=== PATIENT | male | born 1965 | race Caucasian/White ===

== ENCOUNTER 2024-09-08 18:19 | Emergency (ER) | payer BC, SELFPAY ==
[2024-09-08 18:20] VITALS: BP 136/81; PULSE 75; RESP 18; TEMP 36.4; O2SAT 100
--- OUTSIDE RECORDS SUMMARY | 2024-09-08 18:20 | XMS_ITS | Clinical Summary ---
Author Organization [email or web address] Address [address] [place] [address] Care Team Providers Care Clerical Warehouseman Name Role Phone Joe Denton MD Primary Care Provider [phone] Source Comments [email or web address],non-owned Affiliates and Associated Physician Practices is amultiple site organization consisting of ambulatory clinics and hospital sitesin [place], [place], [place] and [place]. This disclosure is being madepursuant to the Care Everywhere program and may not contain all information available regarding this patient. Last updated 17.[facility] Allergies No known active allergies Medications * Be aware that medications may not be up to date on this document. Alwaysverify current medications with the patient. predniSONE (DELTASONE) 20 MG tablet Take 3 tabs PO for 3 days, then 2 tabs PO for 3 days, then 1 tab PO for 3 days. 18 Tab 7 Active Additional Information Patient not taking.Reported on 04/28/2023 polyethylene glycol (Golytely) 236 g solution Drink half of prep solution at 5pm the night before colonoscopy. Finish the prep at 4am the day of test. 4000 mL 4 Active Biktarvy 50-200-25 MG 4 Active chlorthalidone (Hygroton) 25 MG tablet 4 Active Mytesi 125 MG Take 1 tablet by mouth 2 times daily 3 Active losartan (Cozaar) 100 MG tablet Take 1 (one) tablet by mouth once daily 3 Active sildenafil (Viagra) 100 MG tablet TAKE 1 TABLET BY MOUTH ONCE DAILY ONE HOUR BEFORE SEXUAL ACTIVITY NEEDED 3 Active B Complex Vitamins (B-Complex/B-12 ) TABS Take 1 tablet by mouth once daily 4 Active doxycycline hyclate (Vibramycin) 100 MG capsule 4 Active loperamide (Imodium) 2 MG capsule Take 1 (one) capsule by mouth 4 times daily as needed 3 Active Social History Tobacco Use Types Packs/Day Years Used Date Smoking Tobacco: Never Tobacco Cessation:Counseling Given: Not Answered Alcohol Use Standard Drinks/Week Comments No 0 (1 standard drink = 0.6 oz pur e alcohol) Sex and Gender Information Value Date Recorded Sex Assigned at Not on file Legal Sex 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 Gender Identity Not on file Sexual Orientation Not on file Last Filed Vital Signs Vital Sign Reading Time Taken Comments Blood Pressure 126/82 04/28/2023 10:00 AM NETWORK SECURITY ANALYST Pulse 78 04/28/2023 10:00 AM NETWORK SECURITY ANALYST Temperature 36.3 C (97.3 F) 04/28/2023 9:46 AM NETWORK SECURITY ANALYST Respiratory Rate 11 04/28/2023 10:0 0 AM NETWORK SECURITY ANALYST Oxygen Saturation 99% 04/28/2023 10: 00 AM NETWORK SECURITY ANALYST Inhaled Oxygen Concentration - - Weight 84.2 kg (185 lb 11.2 oz) 04/28/2023 8:35 AM NETWORK SECURITY ANALYST Height 188 cm (6' 2) 04/28/2023 8:35 AM NETWORK SECURITY ANALYST Body Mass Index 23.84 04/28/2023 8:35 AM NETWORK SECURITY ANALYST Plan of Treatment Health Maintenance Due Date Last Done Comments COLOGUARD (AGES 45-75) - COLON CA SCREENING 1965 CT COLONOGRAPHY - COLON CA SCREENING 1966 FIT - COLON CA SCREENING 1966 FLEX SIG - COLON CA SCREENING 1966 LIPID TESTING 1966 DTAP/TDAP/TD VACCINES (1 - Tdap) 1985 HEPATITIS B VACCINE (1 of 3 - 19+ 3-dose series) 1985 PNEUMOCOCCAL VACCINE 50+ (1 of 1 - PCV) 01/28/2016 ZOSTER VACCINE (1 of 2) 01/28/2016 COVID-19 VACCINE (1 - season) 2023 DEPRESSION SCREENING 03/07/2024 INFLUENZA VACCINE (Season Ended) 2024 01/03/2023, 03/19/2022, 01/20/2021, Additional history exists COLON MONITORING 04/28/2033 04/28/2023, 04/28/2023 COLONOSCOPY - COLON CA SCREENING 04/28/2033 04/28/2023, 04/28/2023 Colorectal Cancer Screening 04/28/2033 HEPATITIS C SCREENING Completed 01/03/2023 , 01/03/2023, 01/03/2023, Additional history exists HIV SCREENING Completed 01/03/2023 HIB VACCINE Aged Out No longer eligi ble based on patient's age to complete this topic HPV VACCINE Aged Out No longer eligi ble based on patient's age to complete this topic MENINGOCOCCAL (Group B) VACCINE SHARED DECISION-MAKING Aged Out No longer eligible based on patient's age to complete this topic MENINGOCOCCAL GROUPS A/C/Y/W VACCINE Aged Out No longer eligible based on patient's age to complete this topic Procedures Procedure Name Priority Date/Time Associated Diagnosis Comments ENDOSCOPY, COLON, SCREENING Routine 04/28/2023 9:01 AM NETWORK SECURITY ANALYST from Last 3 Months or Most Recently Relevant to Health Maintenance Results * ENDOSCOPY, COLON, SCREENING (04/28/2023 9:01 AM NETWORK SECURITY ANALYST) Report Endoscopy POC Endoscopy Department Report _ Patient Name: Del Myers Procedure Date: 04/28/2023 9:01 AM Date of : 1965 Classification: Outpatient Gender: Male Ethnicity: Not or Race: White _ Providers: Tono Yeung MD Referring MD: Joe Denton (Referring MD) Procedure: Colonoscopy Indications: Screening for colorectal malignant neoplasm, This is the patient's first colonoscopy Medications: Monitored Anesthesia Care Description of Procedure: Pre-Anesthesia Assessment: - Prior to the procedure, a History and Physical was performed, and patient medications and allergies were reviewed. The patient's tolerance of previous anesthesia was also reviewed. The risks and benefits of the procedure and the sedation options and risks were discussed with the patient. All questions were answered, and informed consent was obtained. Prior Anticoagulants: The patient has taken no anticoagulant or antiplatelet agents. ASA Grade Assessment: II - A patient with mild systemic disease. After reviewing the risks and benefits, the patient was deemed in satisfactory condition to undergo the procedure. After I obtained informed consent, the scope was passed under direct vision. Throughout the procedure, the patient's blood pressure, pulse, and oxygen saturations were monitored continuously. The [id number] was introduced through the anus and advanced to the cecum, identified by appendiceal orifice and ileocecal valve. The colonoscopy was performed without difficulty. The patient tolerated the procedure well. The quality of the bowel preparation was excellent. Findings: A 4 mm polyp was found in the ascending colon. The polyp was removed with a cold snare. Resection and retrieval were complete. Two hyperplastic polyps were found in the distal rectum. The polyps were diminutive in size. Polypectomy was not attempted. A few diverticula were found in the sigmoid colon. No other significant abnormalities were identified in a careful examination of the remainder of the colon. No mass or large polyps seen. Internal hemorrhoids were found during retroflexion. The hemorrhoids were small. Estimated Blood Loss: Estimated blood loss was minimal. Complications: No immediate complications. Impression: - One 4 mm polyp in the ascending colon, removed with a cold snare. - Diverticulosis in the sigmoid colon. - Internal hemorrhoids. - Two diminutive hyperplastic polyps in the rectum. Recommendation: - Await pathology results. - Repeat colonoscopy in 7 years for surveillance. - Return to referring physician as previously scheduled. - Resume previous diet. - Continue present medications. Attending Participation: I personally performed the entire procedure. Procedure Code(s): --- Professional --- 87847, Colonoscopy, flexible; with removal of tumor(s), polyp(s), or other lesion(s) by snare technique Diagnosis Code(s): --- Professional --- Z12.11, Encounter for screening for malignant neoplasm of colon D12.2, Benign neoplasm of ascending colon K64.8, Other hemorrhoids D12.8, Benign neoplasm of rectum K57.30, Diverticulosis of large intestine without perforation or abscess without bleeding CPT copyright 2021 [employer]. All rights reserved. The codes documented in this report are preliminary and upon mental retardation aide review may be revised to meet current compliance requirements. _ Tono Yeung MD 04/28/2023 9:53:13 AM Note Initiated On: 04/28/2023 9:01 AM Number of Addenda: [address] [facility] [address] [place] [address] [facility] 04/28/2023 9:01 AM NETWORK SECURITY ANALYST us Tono Yeung MD GI PROCEDURE ORDERABLES Edite d Result - Final [facility] from Last 3 Months or Most Recently Relevant to Health Maintenance Insurance [facility] MEDICAID Care Teams Clerical Warehouseman Relationship Specialty Start Date End Date Joe Denton MD [address] [facility] [address] [place] [id number] PCP - General Infectious Disease 12/22/23
--- OUTSIDE RECORDS SUMMARY | 2024-09-08 18:21 | XMS_ITS | Clinical Summary ---
Author Organization [facility] Address [address] [place] [address] Care Team Providers Care Trekking Guide Name Role Phone Gianluca Aparicio MD Primary Care Provider [phone] Allergies Active Allergy Reactions Criticality Noted Date Comments Nevirapine Unknown 09/12/2015 Medications losartan (COZAAR) 100 mg tabletIndication s:Hypertension, essential Take 1 tablet (100 mg total) by mouth daily 90 tablet 3 09/21/2022 Active loperamide (IMODIUM) 2 mg capsule TAKE 1 TABLET BY MOUTH 4 TIMES A DAY NEEDED FOR DIARRHEA. 120 capsule 1 12/27/2022 Active bictegravir-emtr icitabine-tenofo vir (BIKTARVY) 50-200-25 mg tabletIndication s:HIV infection Take 1 tablet by mouth daily 100 tablet 12/30/2022 Active Active Problems Problem Noted Date Diagnosed Date Encounter for medical examination to establish c are 09/21/2022 Assessment & Plan (09/22/2022 12:40 PM CDT): A(n) initial well visit to establish care has been performed today. Del Myers is not up to date on screening tests. He is in need of DEXA, Prostate screening, screening a1c, HIV screening, hepatitis screening, Colon cancer screening, Diabetic kidney disease screening, Cholesterol screening, and Cervical cancer screening. He is not up to date on needed preventative vaccinations; He is in need of Zoster, Hepatitis B, and Hepatitis A. We discussed healthy lifestyle habits, educational material has been given. Medications reviewed, changes documented as per the medical record and discussed with patient along with risks vs benefits. Refilling losartan, Biktarvy, Imodium Labs as ordered; will review records to determine which screening tests are needed Monitor BP at home, 1ce daily at least Return in 1 month Other male erectile dysfunction 10/13/2017 Preventative health care 10/13/2017 Contact dermatitis due to poison nini 05/28/2016 High risk medication use 08/25/2012 Abnormal Pap smear of anus 05/12/2012 Anaclitic depression 05/12/2012 Syphilis 07/22/2011 Human immunodeficiency virus (HIV) infection Immunizations Immunization Administration Dates Next Due Influenza, Quadrivalent, Spl it, Intramuscular 02/27/2015 Influenza, Trivalent, IM (MDV) 05/12/2012 Influenza, Trivalent, Preser vative Free, Intramuscular 01/21/2017 Influenza, Unspecified 03/07/2022(Deferr ed: Patient Refused),03/07/2021(Deferred: Patient Refused) PPD TEST 05/12/2012,07/16/2011 Pneumococcal Conjugate PCV 13 05/28/2016 Pneumococcal Polysaccharide PPV23 05/12/2012 Tdap 10/13/2017 Medical History Medical History Date Comments Hypertension HIV (human immunodeficiency virus infection) (HC C) 1999 Family History Medical History Relation Name Comments Obesity Brother 1 Peripheral vascular disease Brother 1 No Known Problems Father Heart disease Maternal Grandfather No Known Problems Maternal Grandmother No Known Problems Mother No Known Problems Paternal Grandfather No Known Problems Paternal Grandmother Relation Name Status Comments Brother 1 Alive Brother 2 Alive Father Alive Maternal Grandfather Maternal Grandmother Mother Alive Paternal Grandfather Paternal Grandmother Social History Tobacco Use Types Packs/Day Years Used Date Smoking Tobacco: Never Smokeless Tobacco: Never Tobacco Cessation:Counseling Given: Not Answered AUDIT-C Answer Date Recorded Q1: How often do you have a drink containing alc ohol? Monthly or less 09/21/2022 Q2: How many drinks containi ng alcohol do you have on a typical day when you are drinking? 1 or 2 09/21/2022 Q3: How often do you have si x or more drinks on one occasion? 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 Not on file Not on file Not on file Obstetrics History Last Filed Vital Signs Vital Sign Reading Time Taken Comments Blood Pressure 146/92 09/21/2022 9:10 AM CDT Pulse 80 09/21/2022 9:10 AM CDT Temperature 36.8 C (98.3 F) 10/13/2017 8:06 AM CDT Respiratory Rate 18 09/21/2022 9:10 AM CDT Oxygen Saturation 98% 09/21/2022 9:10 AM CDT Inhaled Oxygen Concentration - - Weight 85.6 kg (188 lb 12.8 oz) 09/21/2022 9:10 AM CDT Height 188 cm (6' 2) 09/21/2022 9:10 AM CDT Body Mass Index 24.24 09/21/2022 9:10 AM CDT Plan of Treatment Health Maintenance Due Date Last Done Comments Colon Cancer Screening-Colonoscopy 1965 HLA B 5701 Typing 1965 G6PD 01/28/1984 Hepatitis A Screening 01/28/1984 Hepatitis B Screening 01/28/1984 Hepatitis A Vaccines (1 of 2 - Risk 2-dose series) 1985 Hepatitis B Vaccines (1 of 3 - 19+ 3-dose series) 1985 Zoster Vaccine (1 of 2) 1985 Osteoporosis Screening-Bone Density Scan 01/28/2016 Pneumococcal vaccine <65 (3 of 3 - PPSV23, PCV20 or PCV21) 05/12/2017 05/28/2016, 05/12/2012 HIV+ Chlamydia and Gonorrhea Screening (Rectal) 10/15/2017 10/15/2016 HIV+ Chlamydia and Gonorrhea Screening (Throat) 10/15/2017 10/15/2016 Hemoglobin A1C 10/13/2018 10/13/2017, 10/15/2016 Hepatitis C Screening 10/13/2018 10/13/2017 , 10/15/2016, 09/12/2015 Lipid Panel 10/13/2018 10/13/2017, 10/15/2016 Proteinuria screening Urinalysis (UA) 10/13/2018 10/13/2017, 08/25/2012, 05/12/2012 RPR Screening 10/13/2018 10/13/2017, 10/15/2016 T Spot (quantiferon gold) 10/13/2018 10/13/2017 HIV + Chlamydia and Gonorrhe a Screening (Urine) 10/14/2018 10/14/2017 Prostate Cancer Screening-PSA 10/14/2019 10/13/2017 Depression Screening 09/22/2023 09/21/2022 Regular Well Visit/Exam 18-64 09/22/2023 09/21/2022 Influenza Vaccine (Season Ended) 2024 01/21/2017, 02/27/2015, 05/12/2012 DTaP/Tdap/Td Vaccine (2 - Td or Tdap) 10/14/202711/2017 Procedures Procedure Name Priority Date/Time Associated Diagnosis Comments HEPATITIS C ANTIBODY Routine 10/13/2017 8:44 AM CDT Human immunodeficiency virus (HIV) infection (HCC) HEMOGLOBIN A1C Routine 10/13/2017 8:44 AM CDT Human immunodeficiency virus (HIV) infection (HCC) LIPID PANEL Routine 10/13/2017 8:44 AM CDT URINALYSIS AND REFLEX TO MICROSCOPIC Routine 10/13/2017 8:44 AM CDT Human immunodeficiency virus (HIV) infection (HCC) T-SPOT.TB Routine 10/13/2017 8:44 AM CDT Human immunodeficiency virus (HIV) infection (HCC) RPR Routine 10/13/2017 8:44 AM CDT Syphilis PSA, TOTAL AND FREE Routine 10/13/2017 8 :44 AM CDT Preventative health care from Last 3 Months or Most Recently Relevant to Health Maintenance Results * TB test, T-SPOT (10/13/2017 8:44 AM CDT) [facility] IFN-Gamma Release Assay TB Negative [facility] Comment: Interpretive Data Testing performed by [employer], [address] [place] [address] Current Interpretive Data was last revised 2013 Blood specimen (specimen) 10/13/2017 8:44 AM CDT 10/13/2017 11:27 AM CDT Narrative [facility] - 10/15/2017 2:18 PM CDT Lor Batista NP LAB MICROBIOLOGY - GEN ERAL ORDERABLES Final Result Performing Organization Address [facility] de Phone Number [facility] [address] [facility] [place] [address] * Urinalysis reflex to microscopic Urine (10/13/2017 8:44 AM CDT) Color, ur Yellow Yellow [facility] Clarity, ur Clear Clear [facility] Specific gravity, ur 1.015 1.010 - 1.025 [facility] pH, urine 5.0 [facility] Protein, ur ql Negative Negative [facility] Glucose, ur ql Negative Negative [facility] Ketones, ur Negative Negative [facility] Bilirubin, ur Negative Negative [facility] Blood, ur Negative Negative [facility] Urobilinogen, ur <2.0 <2.0 mg/dL [facility] Nitrite, ur Negative Negative [facility] Leukocyte esterase, ur Negative Negative [facility] Urine 10/13/2017 8:44 AM CDT 10/13/2017 11:27 AM CDT Narrative [facility] - 10/13/2017 11:39 AM CDT Urine pH is affected by diet, medications, systemic acid-base disturbances, and renal tubular function. pH may affect urinary stone formation. For example, urine pH below 6.0 may help reduce the tendency for calcium phosphate stones and pH greater than 6.0 may reduce the tendency for uric acid stone formation. Source: [employer] Last revised 03-17-2017 Lor Batista NP LAB URINE ORDERABLES F inal Result Performing Organization Address City/[facility]/ZIP Co de Phone Number [facility] [place] [address] * Hepatitis C antibody (10/13/2017 8:44 AM CDT) [facility] Hep C Ab Nonreactive Nonreactive [facility] Comment: Interpretive Data Positive and greyzone results should be confirmed by a molecular method. If positive or greyzone, a second separately collected sample should be submitted for Hepatitis C Virus RNA. Detection and Quantitation by Real-Time Reverse Insurance Follow Up Rep-PCR.Current Interpretive data was last revised on 2016. Blood specimen (specimen) 10/13/2017 8:44 AM CDT 10/13/2017 11:27 AM CDT [facility] - 10/13/2017 2:33 PM CDT Lor Batista NP LAB MICROBIOLOGY - GEN ERAL ORDERABLES Edited Result - Final Performing Organization Address [facility] Co de Phone Number [facility] [place] [address] * (ABNORMAL) RPR, serum (10/13/2017 8:44 AM CDT) [facility] RPR Reactive(A ) Nonreactive [facility] Blood specimen (specimen) 10/13/2017 8:44 AM CDT 10/13/2017 11:27 AM CDT [facility] - 10/13/2017 1:54 PM CDT Lor Batista NP LAB MICROBIOLOGY - GEN ERAL ORDERABLES Final Result Performing Organization Address City/[facility]/[place] [address] * PSA, total and free (10/13/2017 8:44 AM CDT) [facility] PSA-free 0.3 ng/mL [facility] PSA-Total 2.5 <=3.5 ng/mL [facility] PSA-Free/Total Ratio See Footnote [facility] Comment: Ratio not calculated because clinical usefulness is not defined except in range of total PSA 4.0-10.0 ng/mL. ADDITIONAL INFORMATION The testing method is an electrochemiluminescence assay manufactured by [employer] and performed on the Modular or Lamonte system. Values obtained with different assay methods or kits may be different and cannot be used interchangeably. Test results cannot be interpreted as absolute evidence for the presence or absence of malignant disease. Test Performed by: [facility] [address] [id number] Blood specimen (specimen) 10/13/2017 8:44 AM CDT 10/13/2017 11:33 AM CDT Narrative [facility] - 10/14/2017 5:13 PM CDT Lor Batista NP LAB BLOOD ORDERABLES F inal Result [facility] [address] [facility] [place] [address] * Hemoglobin A1c (10/13/2017 8:44 AM CDT) Hgb A1C 5.5 4.0 - 5.6 % [facility] Estimated Average Glucose 111 mg/dL [facility] Comment: The ADA recommends reporting an estimated Average Glucose (eAG) with all Hemoglobin A1c results using the equation derived from a study of 507 normal and diabetic adults. Minority populations were underrepresented and children were not included. (Diabetes Care 31:5442-2318, 2008). The eAG is not equivalent to a fasting glucose. Blood specimen (specimen) 10/13/2017 8:44 AM CDT 10/13/2017 11:27 AM CDT Narrative [facility] - 10/13/2017 11:53 AM CDT us Lor Batista NP LAB BLOOD ORDERABLES F inal Result [facility] [address] [facility] [place] [address] * Lipid panel (10/13/2017 8:44 AM CDT) Cholesterol 145 30 - 200 mg/dL [facility] Comment: Interpretive Data Desirable: <200 mg/dL Borderline high: 200-239 mg/dL High: > or = 240 mg/dL Literature Reference: National Cholesterol Education Program (NCEP) Expert Panel on Detection, Evaluation, and Treatment of High Blood Cholesterol in Adults (Adult Treatment Panel III). Circulation 2004; 110:227. Current interpretive data was last revised on 2015. Triglycerides 132 0 - 150 mg/dL [facility] Comment: Interpretive Data Desirable: < 150 mg/dL Borderline High: 150 - 199 mg/dL High: 200 - 499 mg/dL Very High: > or = 499 mg/dL Literature Reference: See Cholesterol Current interpretive data was last revised on 2015. HDL 41 >=40 mg/dL [facility] Comment: Interpretive Data Less than 40 mg/dL - low; A major risk factor for heart disease. Greater than or equal to 60 mg/dL - High; considered protective of heart disease. Literature Reference: See Cholesterol Current interpretive data was last revised on 2015. LDL, calculated 78 10 - 129 mg/dL [facility] Comment: Interpretive Data Optimal: < 100 mg/dL Near Optimal: 100 - 129 mg/dL Borderline High: 130 - 159 mg/dL High: 160 - 189 mg/dL Very high: > or = 190 mg/dL Literature Reference: See Cholesterol Current interpretive data was last revised on 2015. Non-HDL Cholesterol 104 mg/dL [facility] Comment: Interpretive Data When triglycerides are >200 mg/dL, non-HDL C is a secondary target of therapy, with a goal 30 mg/dL higher than the identified LDL-C goal. Reference: See Cholesterol Reference. Current interpretive data was last revised 2015. Blood specimen (specimen) 10/13/2017 8:44 AM CDT 10/13/2017 11:28 AM CDT Narrative [facility] - 10/13/2017 7:01 PM CDT us Linette León MD PhD LAB BLOOD ORDERABL ES Final Result [facility] [place] [address] from Last 3 Months or Most Recently Relevant to Health Maintenance Insurance [facility] MEDICAID [facility] MEDICAID Care Teams Trekking Guide Relationship Specialty Start Date End Date Gianluca Aparicio MD [address] [facility] [address] [place] [address] PCP - General Family Medicine 09/21/22
--- OUTSIDE RECORDS SUMMARY | 2024-09-08 18:21 | XMS_ITS | Referral Summary ---
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 [place], [place] [address] Current Interpretive Data was last revised 2013 Blood specimen (specimen) 10/13/2017 8:44 AM CDT 10/13/2017 11:27 AM CDT Narrative [facility]A LEGER - 10/15/2017 2:18 PM CDT Lor Batista NP LAB MICROBIOLOGY - GEN ERAL ORDERABLES Final Result Performing Organization Address [facility] de Phone Number [facility] [place] [address] * Urinalysis reflex to microscopic Urine (10/13/2017 8:44 AM CDT) Color, ur Yellow Yellow [facility] Clarity, ur Clear Clear [facility] Specific gravity, ur 1.015 1.010 - 1.025 [facility] pH, urine 5.0 [facility] Protein, ur ql Negative Negative [facility] Glucose, ur ql Negative Negative [facility] Ketones, ur Negative Negative [facility] Bilirubin, ur Negative Negative [facility] Blood, ur Negative Negative [facility] Urobilinogen, ur <2.0 <2.0 mg/dL [facility] Nitrite, ur Negative Negative [facility] Leukocyte esterase, ur Negative Negative [facility] Urine 10/13/2017 8:44 AM CDT 10/13/2017 11:27 AM CDT Narrative [facility]A LEGER - 10/13/2017 11:39 AM CDT Urine pH is affected by diet, medications, systemic acid-base disturbances, and renal tubular function. pH may affect urinary stone formation. For example, urine pH below 6.0 may help reduce the tendency for calcium phosphate stones and pH greater than 6.0 may reduce the tendency for uric acid stone formation. Source: [facility]. Last revised 03-17-2017 Lor Batista NP LAB URINE ORDERABLES F inal Result Performing Organization Address [facility] Co de Phone Number [facility] [place] [address] * Hepatitis C antibody (10/13/2017 8:44 AM CDT) [facility] Hep C Ab Nonreactive Nonreactive [facility] Comment: Interpretive Data Positive and greyzone results should be confirmed by a molecular method. If positive or greyzone, a second separately collected sample should be submitted for Hepatitis C Virus RNA. Detection and Quantitation by Real-Time Reverse Gas Compressor Operator-PCR.Current Interpretive data was last revised on 2016. Blood specimen (specimen) 10/13/2017 8:44 AM CDT 10/13/2017 11:27 AM CDT Narrative [facility] - 10/13/2017 2:33 PM CDT Lor Batista NP LAB MICROBIOLOGY - GEN ERAL ORDERABLES Edited Result - Final Performing Organization Address [facility]/ZIP Co de Phone Number [facility] [place] [address] * (ABNORMAL) RPR, serum (10/13/2017 8:44 AM CDT) [facility] RPR Reactive(A ) Nonreactive [facility] Blood specimen (specimen) 10/13/2017 8:44 AM CDT 10/13/2017 11:27 AM CDT Narrative [facility] - 10/13/2017 1:54 PM CDT Lor Batista NP LAB MICROBIOLOGY - GEN ERAL ORDERABLES Final Result [facility] [place] [address] * PSA, total and free (10/13/2017 8:44 AM CDT) [facility] PSA-free 0.3 ng/mL [facility] PSA-Total 2.5 <=3.5 ng/mL [facility] PSA-Free/Total Ratio See Footnote [facility] Comment: Ratio not calculated because clinical usefulness [...] absence of malignant disease. Test Performed by: [facility] [address] [place] [address] Blood specimen (specimen) 10/13/2017 8:44 AM CDT 10/13/2017 11:33 AM CDT Narrative [facility] - 10/14/2017 5:13 PM CDT Lor Batista NP LAB BLOOD ORDERABLES F inal Result Performing Organization Address [facility] Co de Phone Number [facility] [place] [address] * Hemoglobin A1c (10/13/2017 8:44 AM CDT) Hgb A1C 5.5 4.0 - 5.6 % [facility] Estimated Average Glucose 111 mg/dL [facility] Comment: The ADA recommends reporting an estimated Average Glucose (eAG) with all Hemoglobin A1c results using the equation derived from a study of 507 normal and diabetic adults. Minority populations were underrepresented and children were not included. (Diabetes Care 31:7310-1331, 2008). The eAG is not equivalent to a fasting glucose. Blood specimen (specimen) 10/13/2017 8:44 AM CDT 10/13/2017 11:27 AM CDT Narrative [facility] - 10/13/2017 11:53 AM CDT Lor Batista NP LAB BLOOD ORDERABLES F inal Result Performing Organization Address [facility]/ZIP Co de Phone Number [facility] [place] [address] * Lipid panel (10/13/2017 8:44 AM CDT) Cholesterol 145 30 - 200 mg/dL [facility] Comment: Interpretive Data Desirable: <200 mg/dL Borderline high: 200-239 mg/dL High: > or = 240 mg/dL Literature Reference: National Cholesterol Education Program (NCEP) Expert Panel on Detection, Evaluation, and Treatment of High Blood Cholesterol in Adults (Adult Treatment Panel III). Circulation 2004; 110:227. Current interpretive data was last revised on 2015. Triglycerides 132 0 - 150 mg/dL [facility] Comment: Interpretive Data Desirable: < 150 mg/dL Borderline High: 150 - 199 mg/dL High: 200 - 499 mg/dL Very High: > or = 499 mg/dL Literature Reference: See Cholesterol Current interpretive data was last revised on 2015. HDL 41 >=40 mg/dL [facility] Comment: Interpretive Data Less than 40 mg/dL - low; A major risk factor for heart disease. Greater than or equal to 60 mg/dL - High; considered protective of heart disease. Literature Reference: See Cholesterol Current interpretive data was last revised on 2015. LDL, calculated 78 10 - 129 mg/dL [facility] Comment: Interpretive Data Optimal: < 100 mg/dL Near Optimal: 100 - 129 mg/dL Borderline High: 130 - 159 mg/dL High: 160 - 189 mg/dL Very high: > or = 190 mg/dL Literature Reference: See Cholesterol Current interpretive data was last revised on 2015. Non-HDL Cholesterol 104 mg/dL [facility] Comment: Interpretive Data When triglycerides are >200 mg/dL, non-HDL C is a secondary target of therapy, with a goal 30 mg/dL higher than the identified LDL-C goal. Reference: See Cholesterol Reference. Current interpretive data was last revised 2015. Blood specimen (specimen) 10/13/2017 8:44 AM CDT 10/13/2017 11:28 AM CDT Narrative [facility] - 10/13/2017 7:01 PM CDT Linette León MD PhD LAB BLOOD ORDERABL ES Final Result Performing Organization Address City/State/ZIP Co me Phone Number [facility] [place] [address] from Last 3 Months or Most Recently Relevant to Health Maintenance Insurance [facility] MEDICAID [facility] MEDICAID Care Teams Spray Crew Relationship Specialty Start Date End Date Gianluca Aparicio MD [address] [address] PCP - General Family Medicine 09/21/22
--- OUTSIDE RECORDS SUMMARY | 2024-09-08 22:09 | XMS_ITS | Referral Summary ---
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 Comment: Interpretive Data Testing performed by [employer], [address] [place], [place] [address] Current Interpretive Data was last revised 2013 Blood specimen (specimen) 10/13/2017 8:44 AM CDT 10/13/2017 11:27 AM CDT Narrative [facility] LEGER - 10/15/2017 2:18 PM CDT Lor Batista NP LAB MICROBIOLOGY - GEN ERAL ORDERABLES Final Result Performing Organization Address [facility] de Phone Number [facility] [place] [address] * Urinalysis reflex to microscopic Urine (10/13/2017 8:44 AM CDT) Color, ur Yellow Yellow [facility] Clarity, ur Clear Clear [facility] Specific gravity, ur 1.015 1.010 - 1.[address] [facility] pH, urine 5.0 [facility] Protein, ur ql Negative Negative [facility] Glucose, ur ql Negative Negative [facility] Ketones, ur Negative Negative [facility] Bilirubin, ur Negative Negative [facility] Blood, ur Negative Negative [facility] Urobilinogen, ur <2.0 <2.0 mg/dL [facility] Nitrite, ur Negative Negative [facility] Leukocyte esterase, ur Negative Negative [facility] Urine 10/13/2017 8:44 AM CDT [...] tendency for uric acid stone formation. Source: [facility] [employer]. Last revised 03-17-2017 Lor Batista NP LAB URINE ORDERABLES F inal Result Performing Organization Address [facility] Co de Phone Number [facility] [place] [address] * Hepatitis C antibody (10/13/2017 8:44 AM CDT) [facility] Hep C Ab Nonreactive Nonreactive [facility] Comment: Interpretive Data Positive and greyzone results should be confirmed by a molecular method. If positive or greyzone, a second separately collected sample should be submitted for Hepatitis C Virus RNA. Detection and Quantitation by Real-Time Reverse Bulldozer Operator-PCR.Current Interpretive data was last revised on 2016. Blood specimen (specimen) 10/13/2017 8:44 AM CDT 10/13/2017 11:27 AM CDT Narrative [facility] - 10/13/2017 2:33 PM CDT Lor Batista NP LAB MICROBIOLOGY - GEN ERAL ORDERABLES Edited Result - Final Performing Organization Address [facility]/ZIP Co de Phone Number [facility] Department [place] [address] * (ABNORMAL) RPR, serum (10/13/2017 8:44 AM CDT) [facility] RPR Reactive(A ) Nonreactive [facility] Blood specimen (specimen) 10/13/2017 8:44 AM CDT 10/13/2017 11:27 AM CDT Narrative [facility] - 10/13/2017 1:54 PM CDT Lor Batista NP LAB MICROBIOLOGY - GEN ERAL ORDERABLES Final Result [facility] Department [place] [address] * PSA, total and free (10/13/2017 8:44 AM CDT) [facility] PSA-free 0.3 ng/mL [facility] PSA-Total 2.5 <=3.5 ng/mL [facility] PSA-Free/Total Ratio See Footnote [facility] Comment: Ratio not calculated because [...] absence of malignant disease. Test Performed by: [facility] [address] [place] [address] Blood specimen (specimen) 10/13/2017 8:44 AM CDT 10/13/2017 11:33 AM CDT Narrative [facility] - 10/14/2017 5:13 PM CDT Lor Batista NP LAB BLOOD ORDERABLES F inal Result Performing Organization Address [facility] Co de Phone Number [facility] Department [place] [address] * Hemoglobin A1c (10/13/2017 8:44 AM CDT) Hgb A1C 5.5 4.0 - 5.6 % [facility] Estimated Average Glucose 111 mg/dL [facility] Comment: The ADA recommends reporting an estimated Average Glucose (eAG) with all Hemoglobin A1c results using the equation derived from a study of 507 normal and diabetic adults. Minority populations were underrepresented and children were not included. (Diabetes Care 31:0186-7816, 2008). The eAG is not equivalent to a fasting glucose. Blood specimen (specimen) 10/13/2017 8:44 AM CDT 10/13/2017 11:27 AM CDT Narrative [facility] - 10/13/2017 11:53 AM CDT Lor Batista NP LAB BLOOD ORDERABLES F inal Result Performing Organization Address [facility]/ZIP Co de Phone Number [facility] Department [place] [address] * Lipid panel (10/13/2017 8:44 AM CDT) Cholesterol 145 30 - 200 mg/dL [facility] Comment: Interpretive Data Desirable: <200 mg/dL Borderline high: 200-239 mg/dL High: > or = 240 mg/dL Literature Reference: National Cholesterol Education Program (NCEP) Expert Panel on Detection, Evaluation, and Treatment of High Blood Cholesterol in Adults (Adult Treatment Panel III). Circulation 2004; 110:227. Current interpretive data was last revised on 2015. Triglycerides 132 0 - 150 mg/dL [facility] Comment: Interpretive Data Desirable: < 150 mg/dL Borderline High: 150 - 199 mg/dL High: 200 - 499 mg/dL Very High: > or = 499 mg/dL Literature Reference: See Cholesterol Current interpretive data was last revised on 2015. HDL 41 >=40 mg/dL [facility] Comment: Interpretive Data Less than 40 mg/dL - low; A major risk factor for heart disease. Greater than or equal to 60 mg/dL - High; considered protective of heart disease. Literature Reference: See Cholesterol Current interpretive data was last revised on 2015. LDL, calculated 78 10 - 129 mg/dL [facility] Comment: Interpretive Data Optimal: < 100 mg/dL Near Optimal: 100 - 129 mg/dL Borderline High: 130 - 159 mg/dL High: 160 - 189 mg/dL Very high: > or = 190 mg/dL Literature Reference: See Cholesterol Current interpretive data was last revised on 2015. Non-HDL Cholesterol 104 mg/dL [facility] Comment: Interpretive Data When triglycerides [...] Final Result Performing Organization Address City/State/ZIP Co sc Phone Number [facility] [place] [address] from Last 3 Months or Most Recently Relevant to Health Maintenance Insurance [facility] MEDICAID [facility] MEDICAID Care Teams Butcher Supervisor Relationship Specialty Start Date End Date Gianluca Aparicio MD [address] [address] PCP - General Family Medicine 09/21/22
--- OUTSIDE RECORDS SUMMARY | 2024-09-08 22:09 | XMS_ITS | Clinical Summary ---
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 Comment: Interpretive Data Testing performed by [employer], [address] [place] [address] Current Interpretive Data was last revised 2013 Blood specimen (specimen) 10/13/2017 8:44 AM CDT 10/13/2017 11:27 AM CDT Narrative [facility] LEGER - 10/15/2017 2:18 PM CDT Lor Batista NP LAB MICROBIOLOGY - GEN ERAL ORDERABLES Final Result Performing Organization Address [facility] de Phone Number [facility] Department [place] [address] * Urinalysis reflex to microscopic Urine (10/13/2017 8:44 AM CDT) Color, ur Yellow Yellow [facility] Clarity, ur Clear Clear [facility] Specific gravity, ur 1.015 1.010 - 1.[address] [facility] pH, urine 5.0 [facility] Protein, ur ql Negative Negative [facility] Glucose, ur ql Negative Negative [facility] Ketones, ur Negative Negative [facility] Bilirubin, ur Negative Negative [facility] Blood, ur Negative Negative [facility] Urobilinogen, ur <2.0 <2.0 mg/dL [facility] Nitrite, ur Negative Negative [facility] Leukocyte esterase, ur Negative Negative [...] for uric acid stone formation. Source: [employer]. Last revised 03-17-2017 Lor Batista NP LAB URINE ORDERABLES F inal Result Performing Organization Address City/[facility]/ZIP Co de Phone Number [facility] Department [place] [address] * Hepatitis C antibody (10/13/2017 8:44 AM CDT) [facility] Hep C Ab Nonreactive Nonreactive [facility] Comment: Interpretive Data Positive and greyzone results should be confirmed by a molecular method. If positive or greyzone, a second separately collected sample should be submitted for Hepatitis C Virus RNA. Detection and Quantitation by Real-Time Reverse Malted Milk Masher-PCR.Current Interpretive data was last revised on 2016. Blood specimen (specimen) 10/13/2017 8:44 AM CDT 10/13/2017 11:[address] [facility] - 10/13/2017 2:33 PM CDT Lor Batista NP LAB MICROBIOLOGY - GEN ERAL ORDERABLES Edited Result - Final Performing Organization Address [facility] Co de Phone Number [facility] Department [place] [address] * (ABNORMAL) RPR, serum (10/13/2017 8:44 AM CDT) [facility] RPR Reactive(A ) Nonreactive [facility] Blood specimen (specimen) 10/13/2017 8:44 AM CDT 10/13/2017 11:[address] [facility] - 10/13/2017 1:54 PM CDT Lor Batista NP LAB MICROBIOLOGY - GEN ERAL ORDERABLES Final Result Performing Organization Address City/[facility]/[place] [address] * PSA, total and free (10/13/2017 8:44 AM CDT) [facility] PSA-free 0.3 ng/mL [facility] PSA-Total 2.5 <=3.5 ng/mL [facility] PSA-Free/Total Ratio See Footnote [facility] [...] absence of malignant disease. Test Performed by: [facility] [address] [id number] Blood specimen (specimen) 10/13/2017 8:44 AM CDT 10/13/2017 11:33 AM CDT Narrative [facility] - 10/14/2017 5:13 PM CDT Lor Batista NP LAB BLOOD ORDERABLES F inal Result [facility] Department [place] [address] * Hemoglobin A1c (10/13/2017 8:44 AM CDT) Hgb A1C 5.5 4.0 - 5.6 % [facility] Estimated Average Glucose 111 mg/dL [facility] Comment: The ADA recommends reporting an estimated Average Glucose (eAG) with all Hemoglobin A1c results using the equation derived from a study of 507 normal and diabetic adults. Minority populations were underrepresented and children were not included. (Diabetes Care 31:8852-3285, 2008). The eAG is not equivalent to a fasting glucose. Blood specimen (specimen) 10/13/2017 8:44 AM CDT 10/13/2017 11:27 AM CDT Narrative [facility] - 10/13/2017 11:53 AM CDT us Lor Batista NP LAB BLOOD ORDERABLES F inal Result [facility] Department [place] [address] * Lipid panel (10/13/2017 8:44 AM CDT) [...] LAB BLOOD ORDERABL ES Final Result [facility] [place] [address] from Last 3 Months or Most Recently Relevant to Health Maintenance Insurance COUNTS INCLUDE 234 BEDS AT THE [facility] MEDICAID COUNTS INCLUDE 234 BEDS AT THE [facility] MEDICAID Care Teams Hand Trimmer Relationship Specialty Start Date End Date Gianluca Aparicio MD [address] [facility] [address] [place] [address] PCP - General Family Medicine 09/21/22
--- OUTSIDE RECORDS SUMMARY | 2024-09-08 22:09 | XMS_ITS | Clinical Summary ---
Author Organization [facility] Address [address] [place] [address] Care Team Providers Care Import Clerk Name Role Phone Joe Garcia MD Primary Care Provider [phone] Source Comments PLEASE NOTE, if this patient is a minor, it may be UNLAWFUL to discuss sensitive information that is contained in these records (such as FAMILY PLANNING, MENTAL HEALTH or SUBSTANCE ABUSE) with the minor patient's parent or other person without the patient's specific authorization.[facility] Allergies No known active allergies Medications losartan (COZAAR) 100 mg tabletIndicatio ns:Primary hypertension Take one-half tablet by mouth once daily . 15 Tablet 2 5 12:12 PM PDT 06/26/19 25 Active doxycycline (VIBRAMYCIN) 100 mg capsuleIndicati ons:High risk homosexual behavior Take 2 capsules (200mg) by mouth within 24-72 hours after condomless sex. 20 Capsule 3 5 12:12 PM PDT 06/26/19 25 Active bictegrav-emtri cit-tenofov ala (BIKTARVY) 50-200-25 mg tabIndications: HIV infection, unspecified symptom status (CMS & HHS-HCC) TAKE ONE TABLET BY MOUTH ONCE DAILY 30 Tablet 3 5 12:12 PM PDT 07/24/19 25 Active sildenafiL (VIAGRA) 100 mg tabletIndicatio ns:Other male erectile dysfunction TAKE 1 TABLET BY MOUTH ONCE DAILY NEEDED FOR ERECTILE DYSFUNCTION 30 Tablet 08/28/19 25 Active tadalafiL (CIALIS) 20 mg tabletIndicatio ns:Other male erectile dysfunction TAKE 1 TABLET BY MOUTH ONCE DAILY NEEDED FOR ERECTILE DYSFUNCTION 20 Tablet 08/28/19 25 Active chlorthalidone (HYGROTEN) 25 mg tabletIndicatio ns:Primary hypertension Take 1 Tablet by mouth once daily 30 Tablet 3 5 12:12 PM PDT 08/29/19 25 Active loperamide (IMODIUM) 2 mg capsuleIndicati ons:Chronic diarrhea Take 1 Capsule by mouth 4 (four) times daily as needed for diarrhea 120 Capsule 3 5 12:12 PM PDT 08/29/19 25 Active hydrocortisone (PROCTO-MED HC) 2.5 % topical creamIndication s:History of hemorrhoids Place rectally 2 (two) times daily as needed for hemorrhoids or irritation 28 g 1 5 12:12 PM PDT 08/29/19 25 Active chlorthalidone (HYGROTEN) 25 mg tabletIndicatio ns:Primary hypertension Take 1 Tablet by mouth once daily 30 Tablet 3 5 9:40 AM PDT 04/30/19 25 2024 Discontinued(R eorder (E-Cancel Not Sent)) loperamide (IMODIUM) 2 mg capsuleIndicati ons:Chronic diarrhea Take 1 Capsule by mouth 4 (four) times daily as needed for diarrhea 120 Capsule 3 5 9:40 AM PDT 04/30/19 25 2024 Discontinued(R eorder (E-Cancel Not Sent)) tadalafiL (CIALIS) 20 mg tabletIndicatio ns:Other male erectile dysfunction TAKE 1 TABLET BY MOUTH ONCE DAILY NEEDED FOR ERECTILE DYSFUNCTION 20 Tablet 2 05/17/19 25 2024 Discontinued sildenafiL (VIAGRA) 100 mg tabletIndicatio ns:Other male erectile dysfunction Take 1 Tablet by mouth once daily as needed for erectile dysfunction 30 Tablet 05/17/19 25 2024 Discontinued hydrocortisone (PROCTO-MED HC) 2.5 % topical creamIndication s:History of hemorrhoids Place rectally 2 (two) times daily as needed for hemorrhoids or irritation 28 g 1 5 9:40 AM PDT 06/26/19 25 2024 Discontinued(R eorder (E-Cancel Not Sent)) Active Problems Problem Noted Date Diagnosed Date Prediabetes 12/08/2023 Assessment & Plan (06/26/2024 10:22 AM CDT): Encouraged patient on dietary lifestyle and modification. Continue to monitor and general counselor. Assessment & Plan (03/16/2024 1:29 PM BIODIESEL PRODUCTION ASSOCIATE): Encouraged patient on dietary lifestyle and modification. Continue to monitor and general counselor. Renal insufficiency 09/05/2023 Assessment & Plan (06/26/2024 10:23 AM CDT): Improved creatinine on last check. Repeat labwork. Encouraged 100% compliance with HIV and BP medications. Avoid nephrotoxic agents and encouraged hydration. Assessment & Plan (03/16/2024 1:29 PM BIODIESEL PRODUCTION ASSOCIATE): Improved creatinine on last check. Repeat labwork. Encouraged 100% compliance with HIV and BP medications. Avoid nephrotoxic agents and encouraged hydration. Assessment & Plan (11/29/2023 3:57 PM CDT): Improved creatinine on last check. Repeat labwork today. Encouraged 100% compliance. Avoid nephrotoxic agents. Assessment & Plan (09/05/2023 9:24 AM CDT): Related to NSAIDS? Low blood pressure? Diarrhea? Patient advised to avoid NSAIDS and to stay hydrated. Lowered dose of BP medication. Recheck BMP and urine studies today. Monitor closely. Low threshold to get renal U/S if renal function remains elevated. Change in mole 08/10/2023 Assessment & Plan (06/26/2024 10:22 AM CDT): Encouraged patient to see Dermatology. Assessment & Plan (03/16/2024 1:29 PM BIODIESEL PRODUCTION ASSOCIATE): Waiting for Dermatology appt. Encouraged him to schedule. Assessment & Plan (11/29/2023 3:56 PM CDT): Encouraged patient to call Dermatology Clinic for appt. Assessment & Plan (09/05/2023 9:23 AM CDT): Encouraged patient to call Dermatology for appt. Assessment & Plan (08/10/2023 3:31 PM CDT): Refer to Dermatology for further evaluation. Allergic rhinitis 08/10/2023 Need for vaccination 05/09/2023 Assessment & Plan (06/26/2024 10:24 AM CDT): Advised patient to get COVID-19 booster from retail pharmacy. Assessment & Plan (11/29/2023 3:59 PM CDT): Give flushot today. Advised patient to get COVID-19 booster from retail pharmacy. Assessment & Plan (09/05/2023 9:25 AM CDT): MMR today. Assessment & Plan (08/10/2023 3:33 PM CDT): Up to date. Assessment & Plan (05/09/2023 9:32 AM BIODIESEL PRODUCTION ASSOCIATE): Menveo #2 today. Shortness of breath 05/09/2023 Assessment & Plan (05/10/2023 10:16 AM BIODIESEL PRODUCTION ASSOCIATE): Exam and EKG done today both unremarkable. Advised patient to monitor symptoms and call if symptoms persist or worsen. Colon cancer screening 04/28/2023 Overview (05/09/2023): Colonoscopy done 04/28/2023: Impression: - One 4 mm polyp in the ascending colon, removed with a cold snare. - Diverticulosis in the sigmoid colon. - Internal hemorrhoids. - Two diminutive hyperplastic polyps in the rectum. Recommendation:- Await pathology results. - Repeat colonoscopy in 7 years for surveillance. - Return to referring physician as previously scheduled. - Resume previous diet. - Continue present medications. Pathology: Final Diagnosis Large intestine, ascending colon polyp, biopsy (A): - Tubular adenoma Assessment & Plan (06/26/2024 10:24 AM CDT): Up to date. Assessment & Plan (03/16/2024 1:30 PM BIODIESEL PRODUCTION ASSOCIATE): Up to date. Assessment & Plan (11/29/2023 3:57 PM CDT): Up to date. Assessment & Plan (09/05/2023 9:24 AM CDT): Up to date. Assessment & Plan (08/10/2023 3:32 PM CDT): Up to date. Assessment & Plan (05/09/2023 9:32 AM BIODIESEL PRODUCTION ASSOCIATE): Up to date. Recheck colonoscopy in 7 years (2030). Assessment & Plan (04/15/2023 2:01 PM BIODIESEL PRODUCTION ASSOCIATE): Waiting for colonoscopy. Assessment & Plan (03/11/2023 10:40 AM BIODIESEL PRODUCTION ASSOCIATE): Patient has colonoscopy scheduled. Assessment & Plan (01/03/2023 2:38 PM CDT): Referred to GI for screening colonoscopy. Routine screening for STI (sexually transmitted infection) 04/11/2023 Assessment & Plan (06/26/2024 10:25 AM CDT): Check STI testing. Assessment & Plan (03/16/2024 1:30 PM BIOD[employer]EL PRODUCTION ASSOCIATE): Check STI testing. Assessment & Plan (11/29/2023 3:59 PM CDT): Check STI testing today. Assessment & Plan (08/10/2023 3:33 PM CDT): Check STI testing. Assessment & Plan (05/09/2023 9:33 AM BIODIESEL PRODUCTION ASSOCIATE): Check STI testing. Assessment & Plan (04/15/2023 2:02 PM BIODIESEL PRODUCTION ASSOCIATE): Check STI testing today. B12 deficiency 03/14/2023 Assessment & Plan (06/26/2024 10:24 AM CDT): Check B12 and folic acid level. Assessment & Plan (11/29/2023 3:57 PM CDT): Check B12 and folic acid level. Assessment & Plan (09/05/2023 9:24 AM CDT): Repeat B12 normal. Not on supplement. Assessment & Plan (08/10/2023 3:32 PM CDT): Check B12 and folic acid level. Assessment & Plan (05/09/2023 9:32 AM BIODIESEL PRODUCTION ASSOCIATE): On B complex. Check B12 and folic acid. Assessment & Plan (04/15/2023 2:01 PM BIODIESEL PRODUCTION ASSOCIATE): Start B complex. Monitor B12 level. Folic acid deficiency 03/14/2023 Assessment & Plan (06/26/2024 10:24 AM CDT): Check B12 and folic acid level. Assessment & Plan (11/29/2023 3:57 PM CDT): Check B12 and folic acid level. Assessment & Plan (09/05/2023 9:24 AM CDT): Repeat folic acid normal. Not on supplement. Assessment & Plan (08/10/2023 3:32 PM CDT): Check B12 and folic acid levels. Assessment & Plan (05/09/2023 9:32 AM BIODIESEL PRODUCTION ASSOCIATE): On B complex. Check B12 and folic acid. Assessment & Plan (04/15/2023 2:01 PM BIODIESEL PRODUCTION ASSOCIATE): Start B complex supplement with folic acid. Monitor level. History of hemorrhoids 03/11/2023 Assessment & Plan (03/11/2023 10:40 AM BIODIESEL PRODUCTION ASSOCIATE): Topical agent given for future flare-up. High risk homosexual behavior 03/11/2023 Assessment & Plan (06/26/2024 10:23 AM CDT): Check STI testing. Assessment & Plan (03/16/2024 1:30 PM BIODIESEL PRODUCTION ASSOCIATE): Check STI testing. Assessment & Plan (11/29/2023 3:57 PM CDT): Check STI testing. Continue Doxy PEP. Assessment & Plan (08/10/2023 3:31 PM CDT): Check STI testing. Continue Doxy PEP. Assessment & Plan (05/09/2023 9:31 AM BIODIESEL PRODUCTION ASSOCIATE): Check STI testing. Continue Doxy Pep. Assessment & Plan (03/11/2023 10:41 AM BIODIESEL PRODUCTION ASSOCIATE): Given DoxyPEP. Chronic diarrhea 01/03/2023 Assessment & Plan (06/26/2024 10:23 AM CDT): Controlled with Loperamide. Continue this for now. Assessment & Plan (03/16/2024 1:29 PM BIODIESEL PRODUCTION ASSOCIATE): Controlled with Loperamide. Continue this for now. Assessment & Plan (11/29/2023 3:56 PM CDT): Controlled with Loperamide. Continue this for now. Assessment & Plan (05/09/2023 9:31 AM BIODIESEL PRODUCTION ASSOCIATE): Stable, controlled. Continue present management. Assessment & Plan (04/15/2023 2:00 PM BIODIESEL PRODUCTION ASSOCIATE): Waiting for colonoscopy. Assessment & Plan (03/11/2023 10:39 AM BIODIESEL PRODUCTION ASSOCIATE): Waiting for colonoscopy. Assessment & Plan (01/03/2023 2:37 PM CDT): Unclear etiology. Check labwork. Request prior records. Refer to GI as he needs further work-up including colonoscopy by GI anyway for colon cancer screening. Prostate cancer screening 01/03/2023 Assessment & Plan (06/26/2024 10:25 AM CDT): Check annual PSA. Assessment & Plan (03/16/2024 1:30 PM BIODIESEL PRODUCTION ASSOCIATE): Check annual PSA. Assessment & Plan (11/29/2023 3:59 PM CDT): Check annual PSA. Assessment & Plan (09/05/2023 9:25 AM CDT): Check annual PSA. Assessment & Plan (08/10/2023 3:33 PM CDT): Check annual PSA. Assessment & Plan (05/09/2023 9:33 AM BIODIESEL PRODUCTION ASSOCIATE): Check annual PSA. Assessment & Plan (04/15/2023 2:02 PM BIODIESEL PRODUCTION ASSOCIATE): Check annual PSA. Assessment & Plan (03/11/2023 10:41 AM BIODIESEL PRODUCTION ASSOCIATE): Check PSA annually. Assessment & Plan (01/03/2023 2:38 PM CDT): Check annual PSA. Primary hypertension 01/03/2023 Assessment & Plan (06/26/2024 10:22 AM CDT): Stable, controlled. Continue present management. Assessment & Plan (03/16/2024 1:29 PM BIODIESEL PRODUCTION ASSOCIATE): Stable, controlled. Continue present management. Assessment & Plan (11/29/2023 3:56 PM CDT): Stable, controlled. Continue present management. Assessment & Plan (09/05/2023 9:23 AM CDT): Stable, controlled. Continue present management. Assessment & Plan (08/10/2023 3:31 PM CDT): Stable, controlled. Continue present management. Assessment & Plan (05/09/2023 9:31 AM BIODIESEL PRODUCTION ASSOCIATE): Stable, controlled. Continue present management. Assessment & Plan (04/15/2023 2:00 PM BIODIESEL PRODUCTION ASSOCIATE): Elevated BP readings. Will start Chlorthalidone. Monitor BP. F/u in 1 month. Assessment & Plan (03/11/2023 10:39 AM BIODIESEL PRODUCTION ASSOCIATE): Elevated BP today, but he had normal BP reading last visit. I encouraged him to avoid caffeine, alcohol, and salt. Monitor home BP readings and f/u in 2-3 weeks. Assessment & Plan (01/03/2023 2:37 PM CDT): Stable, controlled. Continue present management. History of depression 01/03/2023 Other male erectile dysfunction 10/13/2017 Assessment & Plan (06/26/2024 10:25 AM CDT): Uncontrolled despite max dosing of Cialis. Lab work-up unremarkable. Refer to Urology. Assessment & Plan (03/16/2024 1:30 PM BIODIESEL PRODUCTION ASSOCIATE): Uncontrolled despite max dosing of Cialis. Lab work-up unremarkable. Refer to Urology. Assessment & Plan (11/29/2023 3:58 PM CDT): Check testosterone level and other work-up. No relief with Viagra. Will change to Cialis. Assessment & Plan (03/11/2023 10:40 AM BIODIESEL PRODUCTION ASSOCIATE): Refilled Sildenafil. High risk medication use 08/25/2012 Abnormal Pap smear of anus 05/12/2012 Assessment & Plan (06/26/2024 10:24 AM CDT): Offered DARE, but he declines today. Will do next visit. History of syphilis 07/19/2003 Overview (01/12/2023): According to records from [facility], patient was treated with Bicillin three different times: 07/19/2003, 12/14/2005, and 05/14/2020. Last RPR titer 1:16 in [facility] records (03/19/2022) prior to moving to [place]. Assessment & Plan (06/26/2024 10:24 AM CDT): Check RPR titer. Assessment & Plan (11/29/2023 3:58 PM CDT): Check RPR titer today. Human immunodeficiency virus infection ([facility]) 03/07/1999 Overview (01/12/2023): HIV dx: 2019 CD4 duke: >200 Opportunistic infections: None Treatment history: Multiple medical regimens in the past (awaiting records). Norvir caused GI upset. Currently on Biktarvy. Genotypes: Per Care Everywhere: 05/2012 Genotype: M184V,I13V, K20K/R, L63P 12/2022 Genotype: I13V, L63P Assessment & Plan (06/26/2024 10:21 AM CDT): HIV under control. Continue current management. Encouraged 100% compliance. No need for opportunistic infection prophylaxis based on last CD4 count. Safe sex measures encouraged. Assessment & Plan (03/16/2024 1:29 PM BIODIESEL PRODUCTION ASSOCIATE): HIV under control. Continue current management. Encouraged 100% compliance. No need for opportunistic infection prophylaxis based on last CD4 count. Safe sex measures encouraged. Immunizations: Encouraged patient to get COVID-19 booster from outside retail pharmacy. Assessment & Plan (11/29/2023 3:56 PM CDT): HIV under control. Continue current management. Encouraged 100% compliance. No need for opportunistic infection prophylaxis based on last CD4 count. Safe sex measures encouraged. Immunizations: Flushot today. Assessment & Plan (09/05/2023 9:23 AM CDT): HIV under control. Continue current management. Encouraged 100% compliance. No need for opportunistic infection prophylaxis based on last CD4 count. Safe sex measures encouraged. Immunizations: MMR #1 today. Assessment & Plan (08/10/2023 3:31 PM CDT): HIV under control. Continue current management. Encouraged 100% compliance. No need for opportunistic infection prophylaxis based on last CD4 count. Safe sex measures encouraged. Immunizations: Up to date. Assessment & Plan (05/09/2023 9:30 AM BIODIESEL PRODUCTION ASSOCIATE): HIV under control. Continue current management. Encouraged 100% compliance. No need for opportunistic infection prophylaxis based on last CD4 count. Safe sex measures encouraged. Immunizations: Menveo #2 today. Assessment & Plan (04/15/2023 1:59 PM BIODIESEL PRODUCTION ASSOCIATE): HIV under control. Continue current management. Encouraged 100% compliance. No need for opportunistic infection prophylaxis based on last CD4 count. Safe sex measures encouraged. Assessment & Plan (03/11/2023 10:38 AM BIODIESEL PRODUCTION ASSOCIATE): HIV under control. Continue current management. Encouraged 100% compliance. No need for opportunistic infection prophylaxis based on last CD4 count. Safe sex measures encouraged. Immunizations: Hep A #2 and Menveo #1 today. Assessment & Plan (01/03/2023 2:37 PM CDT): Recently moved from [place], [place]. Request records from [facility] in [place]. Check labwork today. Continue Biktarvy. Encouraged 100% compliance. Wait for labs and records to see if he needs OI prophylaxis. Safe sex measures encouraged. Immunizations: Flushot today. Encouraged patient to get COVID-19 vaccine from [facility] or other retail pharmacy. Wait for labs and records to see if he needs any other vaccines. Resolved Problems Problem Noted Date Diagnosed Date Resolved Date Chlamydia trachomatis infection of pharynx 01/10/2023 03/11/2023 Encounters Date Type Department Care Team Description 06/27/2024 1:30 PM CDT Office Visit [address] [id number] KokoAlexandr jones 06/26/2024 Results Follow-Up [address] [phone] Joe Garcia MD 06/25/2024 11:30 AM CDT Office Visit [address] [phone] Buffy Strange 06/25/2024 10:30 AM CDT Office Visit [address] [phone] Joe Garcia MD 06/25/2024 Office Visit [address] [phone] Trent Baer DMD 06/18/2024 10:30 AM CDT Office Visit [address] [phone] Trent Baer DMD from Last 3 Months Immunizations Immunization Administration Dates Next Due COVID-19,SARS-COV-2 VACCINE, UNSPECIFIED (US Admin) 01/20/2021,06/11/2020,05/14/2020 Flu, Multi Dose 0.5 ML 02/27/2015 Flu, Preservative Free 01/03/2023 Hep A, adult 03/11/2023,08/29/2001 INFLUENZA, SEASONAL, INJECTABLE 03/19/19 23,01/20/2021,12/19/2019,05/12,12/14/2010,02/15/2008,01/02/2007 ,02/21/2004 INFLUENZA, SEASONAL, INJECTA BLE, PRESERVATIVE FREE 11/29/2023,01/21/2017 MENINGOCOCCAL MCV4O (MENVEO) 05/09/2023,03/11/19 24 MMR (MMR II/Priorix) 09/05/2023 PNEUMOCOCCAL CONJUGATE PCV 13 10/09/2020, 017 PNEUMOCOCCAL POLYSACCHARIDE PPV23 (Pneumovax 23) 05/12/2012,01/10/2009,12/19/2003 Smallpox Mpox (JYNNEOS) Vaccine 10/30/2021,10/30 TDAP 10/13/2017 ZOSTER VACCINE, RECOMBINANT (SHINGRIX) 2,10/09/2020 Family History Medical History Relation Name Comments Vision Problems Father Hypertension Mother Vision Problems Mother Relation Name Status Comments Father Mother Social History Tobacco Use Types Packs/Day Years Used Date Smoking Tobacco: Never Passive Smoke Exposure: Never Smokeless Tobacco: Never Tobacco Cessation:Counseling Given: Not Answered Alcohol Use Standard Drinks/Week Comments Yes 0 (1 standard drink = 0.6 oz pur e alcohol) Rarely Social Connections Answer Date Recorded Do you have someone you could call if you needed help? 1 11/29/2023 Financial Resource Strain Answer Date R ecorded How hard is it for you to pa y for the very basics like food, housing, heating, medical care, and medications? 2 11/28 Stress Answer Date Recorded Stress 0 12/31/2022 Physical Activity Answer Date Recorded Physical Activity 0 12/31/2022 Food Insecurity Answer Date Recorded Within the past 12 months, y ou worried that your food would run out before you got money to buy more. 1 11/29/2023 Transportation Needs Answer Date Record ed In the past 12 months, has l ack of transportation kept you from medical appointments, meetings, work or from getting things needed for daily living? 1 11/29/2023 Housing Stability Answer Date Recorded What is your living situation today? 1 11/29/2023 Safety and Environment Answer Date Mode rded How often does anyone, inclu ding family and friends, physically hurt you? 1 11/29/2023 Utilities Answer Date Recorded Utilities 0 12/31/2022 Employment Answer Date Recorded Stress 0 11/17/2023 Sex and Gender Information Value Date Recorded Sex Assigned at Male 01/03/2023 7:41 AM PDT Legal Sex Male 7:01 AM PDT Gender Identity Male 01/03/2023 7:41 AM PDT Sexual Orientation Coley 01/03/2023 7: 41 AM PDT Last Filed Vital Signs Vital Sign Reading Time Taken Comments Blood Pressure 124/76 06/25/2024 10:49 AM CDT Pulse 80 06/25/2024 10:49 AM CDT Temperature 35.7 C (96.3 F) 12/07/2023 8:49 AM CDT Respiratory Rate 18 05/09/2023 9:28 AM BIODIESEL PRODUCTION ASSOCIATE Oxygen Saturation 98% 11/29/2023 3:30 PM CDT Inhaled Oxygen Concentration - - Weight 89.4 kg (197 lb) 06/25/2024 10:49 AM CDT Height 188 cm (6' 2) 11/29/2023 3:30 PM CDT Body Mass Index 25.29 11/29/2023 3:30 PM CDT Plan of Treatment Upcoming Encounters Date Type Department Care Team (Late st Contact Info) Description 09/24/2024 10:30 AM CDT Office Visit [facility] [address] [place] [phone] Joe Garcia MD [address] [place] [address] Health Maintenance Due Date Last Done Comments Anxiety Screening [address] CT Colonography 2011 FIT/gFOBT 2011 Fecal DNA 2011 Flexible Sigmoidoscopy 2011 [id number] ( season) 2023 01/20/2021, 06/11/2020, 05/14/2020 Alcohol and Drug Screen 03/07/2024 Depression Annual Screen 03/07/2024 01/03/2023 STI Counseling 04/28/2024 04/28/2023 Dental Examination 06/03/2024 06/02/2023 Imm-Influenza (#1) 2024 11/29/2023, 1 , 03/19/2022, Additional history exists Tobacco Screening 06/18/2025 06/18/2024 Diabetes Screening 06/25/2025 06/25/2024, 0 06/25/2024, 03/28/2024, Additional history exists Syphilis Screening 06/25/2025 06/25/2024, 0 06/25/2024, 03/28/2024, Additional history exists Imm-Pneumococcal 50+ (4 of 4 - PCV20 or PCV21) 10/09/2025 10/09/2020, 05/28/2016, 05/12/2012, Additional history exists Lipid Screening 06/26/2027 06/25/2024, 05/09/2023 Imm-DTaP/Tdap/Td (2 - Td or Tdap) 10/14/2027 10/13/2017 Imm-Meningococcal (3 - Risk 2-dose series) 05/08/2028 05/09/2023, 03/11/2023 Dental FMX/Pano 06/03/2028 06/02/2023 Colonoscopy 04/28/2033 04/28/2023 Colorectal Cancer Screening 04/28/2033 Imm-Zoster, Recombinant Completed 04/21/2021, 10/09 Imm-Mpox (formerly Monkeypox) Discontinued 10/30/2021, 10/30/2021 Hepatitis B Screening Completed 01/03/2023, 023 Imm-Hepatitis A Completed 03/11/2023, 08/29/2001 Imm-MMR Discontinued 09/05/2023 Hepatitis C Screening Completed 06/25/2024, 023 Imm-HIB Aged Out No longer eligi ble based on patient's age to complete this topic Imm-Hepatitis B Discontinued Procedures Procedure Name Priority Date/Time Associated Diagnosis Comments OTHER ORDERS SCANNED DOCUMENT 06/28/2024 2:00 AM CDT [facility] LAB FEE - REPLACE MISSING OR BROKEN TEETH - COMPLETE DENTURE (EACH TOOTH) Routine 06/27/2024 1:30 PM CDT Complete edentulism, unspecified edentulism class DENTAL TREATMENT PLAN NEW Routine 06/27/2024 1:30 PM CDT Complete edentulism, unspecified edentulism class MEDICAL HISTORY UPDATE Routine 1:30 PM CDT Complete edentulism, unspecified edentulism class ORAL HYGIENE INSTRUCTIONS Routine 06/27/2024 1:30 PM CDT Complete edentulism, unspecified edentulism class MEDICAL HISTORY UPDATE Routine 11:30 AM CDT Encounter for fitting and adjustment of dental prosthetic device ORAL HYGIENE INSTRUCTIONS Routine 06/25/2024 11:30 AM CDT Encounter for fitting and adjustment of dental prosthetic device 10 REPLACE MISSING/BROKEN TEETH - COMPLETE DENTURE Routine 06/25/2024 11:30 AM CDT Encounter for fitting and adjustment of dental prosthetic device C TRACHOMATIS/N GONORRHOEAE RNA,TMA Routine 06/25/2024 11:14 AM CDT HIV infection, unspecified symptom status ([facility]) High risk homosexual behavior High risk medication use Routine screening for STI (sexually transmitted infection) CHLAMYDIA/GONORRHOEAE RNA, TMA, THROAT Routine 06/25/2024 11:14 AM CDT HIV infection, unspecified symptom status ([facility]) High risk homosexual behavior High risk medication use Routine screening for STI (sexually transmitted infection) CHLAMYDIA/GONORRHEA, RNA TMA, RECTAL Routine 06/25/2024 11:14 AM CDT HIV infection, unspecified symptom status ([facility]) High risk homosexual behavior High risk medication use Routine screening for STI (sexually transmitted infection) URINALYSIS, MACROSCOPIC Routine 06/25/2024 11:14 AM CDT HIV infection, unspecified symptom status ([facility]) High risk medication use RFLX - RPR TITER Routine 06/25/2024 11:0 6 AM CDT HIV infection, unspecified symptom status ([facility]) High risk homosexual behavior Routine screening for STI (sexually transmitted infection) History of syphilis High risk medication use HEPATITIS C AB W/RFLX HCV RNA, QT, RT PCR Routine 06/25/2024 11:06 AM CDT HIV infection, unspecified symptom status ([facility]) High risk homosexual behavior High risk medication use Routine screening for STI (sexually transmitted infection) LIPID PANEL Routine 06/25/2024 11:06 AM CDT HIV infection, unspecified symptom status ([facility]) High risk medication use ASSAY OF TESTOSTERONE TOTAL Routine 06/25/2024 11:06 AM CDT HIV infection, unspecified symptom status ([facility]) High risk medication use Other male erectile dysfunction VITAMIN B12 & FOLATE Routine 06/25/2024 11:06 AM CDT HIV infection, unspecified symptom status ([facility]) B12 deficiency Folic acid deficiency High risk medication use HEMOGLOBIN GLYCOSYLATED A1C Routine 06/25/2024 11:06 AM CDT HIV infection, unspecified symptom status ([facility]) Prediabetes High risk medication use RPR (MONITOR) W/REFL TITER Routine 06/25/2024 11:06 AM CDT HIV infection, unspecified symptom status ([facility]) High risk homosexual behavior High risk medication use History of syphilis Routine screening for STI (sexually transmitted infection) COMPREHENSIVE METABOLIC PANEL Routine 06/25/2024 11:06 AM CDT HIV infection, unspecified symptom status ([facility]) Renal insufficiency High risk medication use BLOOD COUNT COMPLETE AUTO&AUTO DIFRNTL WBC Routine 06/25/2024 11:06 AM CDT HIV infection, unspecified symptom status ([facility]) High risk medication use LYMPHOCYTE SUBSET PANEL 5 Routine 06/25/2024 11:06 AM CDT HIV infection, unspecified symptom status ([facility]) High risk medication use HIV-1 RNA QUANT REAL TIME PCR, PLASMA Routine 06/25/2024 11:06 AM CDT HIV infection, unspecified symptom status ([facility]) High risk medication use MEDICAL HISTORY UPDATE Routine 10:30 AM CDT Encounter for fitting and adjustment of dental prosthetic device ORAL HYGIENE INSTRUCTIONS Routine 06/18/2024 10:30 AM CDT Encounter for fitting and adjustment of dental prosthetic device OFFICE VISIT OBSERVATION NO OTHER SRVC PERFORMED Routine 06/18/2024 10:30 AM CDT Encounter for fitting and adjustment of dental prosthetic device PANORAMIC RADIOGRAPHIC IMAGE Routine 06/02/2023 8:30 AM CDT Retained tooth root Encounter for dental examination Nonrestorable carious tooth Partial edentulism, unspecified edentulism class COMP ORAL EVALUATION - NEW/ESTABLISHED PATIENT Routine 06/02/2023 8:30 AM CDT Encounter for dental examination Nonrestorable carious tooth HEPATITIS B SURFACE AG, EIA WITH REFLEX CONFIRM Routine 01/03/2023 11:50 AM CDT HIV infection, unspecified symptom status ([facility]) from Last 3 Months or Most Recently Relevant to Health Maintenance Results * OTHER ORDERS SCANNED DOCUMENT (06/28/2024 2:00 AM CDT) 06/28/2024 2:00 AM CDT Trent Baer DMD SCAN OTHER ORDERS Final Res ult * CHLAMYDIA/GONORRHOEAE RNA, TMA, THROAT (06/25/2024 11:14 AM CDT) CHLAMYDIA TRACHOMATIS RNA, TMA, THROAT NOT DETECTED NOT DETECTED [facility] NEISSERIA GONORRHOEAE RNA, TMA, THROAT NOT DETECTED NOT DETECTED [facility] COMMENT [facility] Swab Structure of anterior portion of neck / Unknown 06/25/2024 11:14 AM CDT 06/26/2024 7:10 AM CDT Narrative [facility] [place] - 06/26/2024 10:54 AM CDT The analytical performance characteristics of this assay have been determined by [employer]. The modifications have not been cleared or approved by the FDA. This assay has been validated pursuant to the CLIA regulations and is used for clinical purposes. Joe Garcia MD LAB - MICROBIOLOGY AMBULATOR Y Edited Result - Final [facility] [place] [address] [place] [address], [facility] [address] [place] [address] * C TRACHOMATIS/N GONORRHOEAE RNA,TMA (06/25/2024 11:14 AM CDT) CHLAMYDIA TRACHOMATIS RNA, TMA NOT DETECTED NOT DETECTED [facility] NEISSERIA GONORRHOEAE RNA, TMA NOT DETECTED NOT DETECTED [facility] COMMENT [facility] Urine Urine specimen / Unknown 06/25/2024 11:14 AM CDT 06/26/2024 7:38 AM CDT Narrative [facility] [place] - 06/26/2024 10:54 AM CDT The analytical performance characteristics of this assay, when used to test SurePath(TM) specimens have been determined by [employer]. The modifications have not been cleared or approved by the FDA. This assay has been validated pursuant to the CLIA regulations and is used for clinical purposes. For additional information, please refer to https://education.Fyusion/faq/ZNG555 (This link is being provided for information/ educational purposes only.) Joe Garcia MD LAB BODY FLUIDS AND STOOLS A MBULATORY Edited Result - Final Performing Organization Address [facility] Co de Phone Number [facility] [place] [address] [place] [address], [facility] [place] [address] [place] [address] * CHLAMYDIA/GONORRHEA, RNA TMA, RECTAL (06/25/2024 11:14 AM CDT) CHLAMYDIA TRACHOMATIS RNA, TMA, RECTAL NOT DETECTED NOT DETECTED [facility] [place] NEISSERIA GONORRHOEAE RNA, TMA, RECTAL NOT DETECTED NOT DETECTED [facility] COMMENT [facility] [place] Swab Specimen from rectum / Unknown 06/25/2024 11:14 AM CDT 06/26/2024 7:14 AM CDT Narrative [facility] [place] - 06/26/2024 10:54 AM CDT The analytical performance characteristics of this assay have been determined by [employer]. The modifications have not been cleared or approved by the FDA. This assay has been validated pursuant to the CLIA regulations and is used for clinical purposes. Joe Garcia MD LAB - MICROBIOLOGY AMBULATOR Y Edited Result - Final Performing Organization Address [facility]/State/ZIP Co de Phone Number [facility] [address] [place] [address], [facility] [place] Santana [address] [facility] [place] [address] * (ABNORMAL) URINALYSIS, MACROSCOPIC (06/25/2024 11:14 AM CDT) COLOR YELLOW YELLOW [facility] APPEARANCE CLEAR CLEAR [facility] SPECIFIC GRAVITY 1.021 1.001 - 1.035 [facility] URINE PH 5.5 5.0 - 8.0 [facility] GLUCOSE NEGATIVE NEGATIVE [facility] BILIRUBIN NEGATIVE NEGATIVE [facility] KETONES NEGATIVE NEGATIVE [facility] OCCULT BLOOD NEGATIVE NEGATIVE [facility] URINE PROTEIN NEGATIVE NEGATIVE [facility] NITRITE NEGATIVE NEGATIVE [facility] LEUKOCYTE ESTERASE 1+(A) NEGATIVE [facility] Urine Urine specimen / Unknown 06/25/2024 11:14 AM CDT 06/26/2024 3:56 AM CDT Joe Garcia MD LAB URINE AMBULATORY Edited Result - Final [facility] MALENA BROWNSIERRA [place] [address], [facility] [place] Esther SZYMANSKI [facility] [place] [address] * HEPATITIS C AB W/RFLX HCV RNA, QT, RT PCR (06/25/2024 11:06 AM CDT) Pathologist [facility] HEPATITIS C ANTIBODY NON-REACT SAROJ NON-REACT SAROJ [facility] Comment: HCV antibody was non-reactive. There is no laboratory evidence of HCV infection. In most cases, no further action is required. However, if recent HCV exposure is suspected, a test for HCV RNA (test code 28788) is suggested. For additional information please refer to http://education.Fyusion/faq/OAZ81c0 (This link is being provided for informational/ educational purposes only.) Blood Blood / Unknown 06/25/2024 1 1:06 AM CDT 06/26/2024 4:45 AM CDT Joe Garcia MD LAB - BLOOD DRAW Edited Resu lt - Final [facility] [place] [address] [address] [place] [address], [facility] [address] [facility] [place] [address] * (ABNORMAL) RFLX - RPR TITER (06/25/2024 11:06 AM CDT) RPR TITER 1:8(H) [facility] 06/25/2024 11:0 6 AM CDT 06/25/2024 11:07 AM CDT Joe Garcia MD LAB - BLOOD DRAW Edited Resu lt - Final Performing Organization Address [facility] Co de Phone Number [facility] [place] [address] [place] [address], [facility] [address] [address] [facility] [place] [address] * LYMPHOCYTE SUBSET PANEL 5 (06/25/2024 11:06 AM CDT) % CD4 (HELPER CELLS) 36 30 - 61 % [facility] [place] [place] ABSOLUTE CD4+ CELLS 490 490 - 1,740 cells/uL [facility] [place] [place] ABSOLUTE LYMPHOCYTES 1,373 850 - 3,900 cells/uL [facility] [place] [place] Blood Blood / Unknown 06/25/2024 1 1:06 AM CDT 06/26/2024 5:00 PM CDT Joe Garcia MD LAB - BLOOD DRAW Edited Resu lt - Final [facility] [place] [place] [address] [place] [address] [facility] [place] [address] [place] [address] * HIV-1 RNA QUANT REAL TIME PCR, PLASMA (06/25/2024 11:06 AM CDT) COPIES/ML NOT DETECTED NOT DETECTED copies/mL [facility] LOG COPIES/ML NOT DETECTED NOT DETECTED Log copies/mL [facility] Comment: This test was performed using Real-Time Polymerase Chain Reaction. Reportable Range: 20 copies/mL to 10,000,000 copies/mL (1.30 log copies/mL to 7.00 log copies/mL). Blood Blood / Unknown 06/25/2024 1 1:06 AM CDT 06/26/2024 5:15 AM CDT Joe Garcia MD LAB - BLOOD DRAW Edited Resu lt - Final Performing Organization Address City/[facility]/ZIP Co de Phone Number [facility] [place] [address] [email or web address] [address], [place] [address] [email or web address] [address] * (ABNORMAL) RPR (MONITOR) W/REFL TITER (06/25/2024 11:06 AM CDT) RPR (MONITOR) W/REFL TITER REACTIVE( A) NON-REACT SAROJ [facility] Comment: The RPR is a vnm-qacvsbhdek-qhzpeqta test; therefore, a treponemal-specific confirmatory test should be performed unless prior syphilis infection has been documented for this patient. Blood Blood / Unknown 06/25/2024 1 1:06 AM CDT 06/26/2024 4:39 AM CDT Joe Garcia MD LAB - BLOOD DRAW Edited Resu lt - Final [facility] [place] [address] [email or web address], [employer] [address], [employer] [address] [place] [employer] [address] * Vitamin B12/Folic acid (JH8709) (06/25/2024 11:06 AM CDT) Pathologist [facility] [place] VITAMIN B12 228 200 - 1,100 pg/mL [facility] Comment: Please Note: Although the reference range for vitamin B12 is 200-1100 pg/mL, it has been reported that between 5 and 10% of patients with values between 200 and 400 pg/mL may experience neuropsychiatric and hematologic abnormalities due to occult B12 deficiency; less than 1% of patients with values above 400 pg/mL will have symptoms. FOLATE, SERUM 6.2 ng/mL [facility] Comment: Reference Range Low: <3.4 Borderline: 3.4-5.4 Normal: >5.4 Blood Blood / Unknown 06/25/2024 1 1:06 AM CDT 06/26/2024 4:45 AM CDT us Joe Garcia MD LAB - BLOOD DRAW Edited Resu lt - Final [facility] [place] [address] [place] [address], [facility]ITAL[facility] [address] [place] [address] * BLOOD COUNT COMPLETE AUTO&AUTO DIFRNTL WBC (06/25/2024 11:06 AM CDT) [facility] WHITE BLOOD CELL COUNT 4.3 3.8 - 10.8 Thousand/ uL [facility] RED BLOOD CELL COUNT 4.96 4.20 - 5.80 Million/u L [facility] HEMOGLOBIN 14.4 13.2 - 17.1 g/dL [facility] HEMATOCRIT 43.5 38.5 - 50.0 % [facility] MCV 87.7 80.0 - 100.0 fL [facility] MCH 29.0 27.0 - 33.0 pg [facility] MCHC 33.1 32.0 - 36.0 g/dL [facility] Comment: For adults, a slight decrease in the calculated MCHC value (in the range of 30 to 32 g/dL) is most likely not clinically significant; however, it should be interpreted with caution in correlation with other red cell parameters and the patient's clinical condition. RDW 13.1 11.0 - 15.0 % [facility] PLATELET COUNT 207 140 - 400 Thousand/ uL [facility] MPV 9.1 7.5 - 12.5 fL [facility] ABSOLUTE NEUTROPHILS 2,614 1,500 - 7,800 cells/uL [facility] ABSOLUTE LYMPHOCYTES 1,260 850 - 3,900 cells/uL [facility] ABSOLUTE MONOCYTES 348 200 - 950 cells/uL [facility] ABSOLUTE EOSINOPHILS 69 15 - 500 cells/uL [facility] ABSOLUTE BASOPHILS 9 0 - 200 cells/uL [facility] NEUTROPHILS PCT 60.8 % [facility] [place] LYMPHOCYTES 29.3 % [facility] MONOCYTES 8.1 % [facility] EOSINOPHILS 1.6 % [facility] BASOPHILS 0.2 % [facility] ABSOLUTE BAND NEUTROPHILS CANCELED [facility] Comment:Result canceled by t he ancillary. ABSOLUTE METAMYELOCYTES CANCELED [facility] Comment:Result canceled by t he ancillary. ABSOLUTE MYELOCYTES CANCELED [facility] Comment:Result canceled by t he ancillary. ABSOLUTE PROMYELOCYTES CANCELED [facility] Comment:Result canceled by t he ancillary. ABSOLUTE BLASTS CANCELED [facility] [place] Comment:Result canceled by t he ancillary. ABSOLUTE NUCLEATED RBC CANCELED [facility] Comment:Result canceled by t he ancillary. BAND NEUTROPHILS CANCELED [facility] Comment:Result canceled by t he ancillary. METAMYELOCYTES CANCELED [facility] Comment:Result canceled by t he ancillary. MYELOCYTES CANCELED [facility] Comment:Result canceled by t he ancillary. PROMYELOCYTES CANCELED [facility] Comment:Result canceled by t he ancillary. REACTIVE LYMPHOCYTES CANCELED [facility] Comment:Result canceled by t he ancillary. BLASTS CANCELED [facility] Comment:Result canceled by t he ancillary. NUCLEATED RBC CANCELED [facility] Comment:Result canceled by t he ancillary. COMMENT(S) CANCELED [facility] Comment:Result canceled by t he ancillary. Blood Blood / Unknown 06/25/2024 1 1:06 AM CDT 06/26/2024 3:31 AM CDT Joe Garcia MD LAB - BLOOD DRAW Edited Resu lt - Final [facility] [place] [id number] [place] [address], [place] [id number] [place] [address] * TESTOSTERONE, TOTAL (06/25/2024 11:06 AM CDT) Pathologist [facility] [place] TESTOSTERONE, TOTAL 370 250 - 827 ng/dL [facility] Blood Blood / Unknown 06/25/2024 1 1:06 AM CDT 06/26/2024 4:45 AM CDT Joe Garcia MD LAB - BLOOD DRAW Edited Resu lt - Final Performing Organization Address City/[facility]/ZIP Co de Phone Number [employer] [address] [address], [address] [address] * (ABNORMAL) Hemoglobin A1C (QU496) (06/25/2024 11:06 AM CDT) HEMOGLOBIN A1C 5.7(H) <5.7 % [facility] Comment: For someone without known diabetes, a hemoglobin A1c value between 5.7% and 6.4% is consistent with prediabetes and should be confirmed with a follow-up test. For someone with known diabetes, a value <7% indicates that their diabetes is well controlled. A1c targets should be individualized based on duration of diabetes, age, comorbid conditions, and other considerations. This assay result is consistent with an increased risk of diabetes. Currently, no consensus exists regarding use of hemoglobin A1c for diagnosis of diabetes for children. Blood Blood / Unknown 06/25/2024 1 1:06 AM CDT 06/26/2024 3:31 AM CDT Joe Garcia MD LAB - BLOOD DRAW Edited Resu lt - Final [facility] [place] [address], [facility] MALENA [place] [address] [address] * LIPID PANEL (06/25/2024 11:06 AM CDT) [facility] CHOLESTEROL, TOTAL 127 <200 mg/dL [facility] HDL CHOLESTEROL 43 > OR = 40 mg/dL [facility] TRIGLYCERIDES 76 <150 mg/dL [facility] LDL-CHOLESTEROL 68 mg/dL (calc) [facility] Comment: Reference range: <100 Desirable range <100 mg/dL for primary prevention; <70 mg/dL for patients with CHD or diabetic patients with > or = 2 CHD risk factors. LDL-C is now calculated using the Chilo-Ying calculation, which is a validated novel method providing better accuracy than the Friedewald equation in the estimation of LDL-C. Chilo SS et al. GALEN. 2013;310(19): 2146-1606 (http://education.Woqu.com.MYagonism.com/faq/NOK560) CHOL/HDLC RATIO 3.0 <5.0 (calc) [facility] NON-HDL CHOLESTEROL 84 <130 mg/dL (calc) [facility] Comment: For patients with diabetes plus 1 major ASCVD risk factor, treating to a non-HDL-C goal of <100 mg/dL (LDL-C of <70 mg/dL) is considered a therapeutic option. Blood Blood / Unknown 06/25/2024 1 1:06 AM CDT 06/26/2024 3:39 AM CDT Joe Garcia MD LAB - BLOOD DRAW Edited Resu lt - Final [facility] [place]9, [facility] [place] [address] [address] [facility] [address] * (ABNORMAL) COMPREHENSIVE METABOLIC PANEL (06/25/2024 11:06 AM CDT) GLUCOSE 92 65 - 99 mg/dL [facility] Comment: Fasting reference interval UREA NITROGEN (BUN) 19 7 - 25 mg/dL [facility] CREATININE (blood) 1.22 0.70 - 1.30 mg/dL [facility] EGFR 69 > OR = 60 mL/min/1. 73m2 [facility] BUN/CREATININE RATIO SEE NOTE: 6 - 22 (calc) [facility] Comment: Not Reported: BUN and Creatinine are within reference range. SODIUM 138 135 - 146 mmol/L [facility] POTASSIUM 3.6 3.5 - 5.3 mmol/L [facility] CHLORIDE 100 98 - 110 mmol/L [facility] CARBON DIOXIDE 33(H) 20 - 32 mmol/L [facility] CALCIUM 9.0 8.6 - 10.3 mg/dL [facility] PROTEIN, TOTAL 7.0 6.1 - 8.1 g/dL [facility] ALBUMIN 4.1 3.6 - 5.1 g/dL [facility] GLOBULIN 2.9 1.9 - 3.7 g/dL (calc) [facility] ALBUMIN/GLOBULI N RATIO 1.4 1.0 - 2.5 (calc) [facility] BILIRUBIN, TOTAL 0.3 0.2 - 1.2 mg/dL [facility] ALKALINE PHOSPHATASE 87 35 - 144 U/L [facility] AST 19 10 - 35 U/L [facility] ALT 19 9 - 46 U/L [facility] Blood Blood / Unknown 06/25/2024 1 1:06 AM CDT 06/26/2024 3:39 AM CDT us Joe Garcia MD LAB - BLOOD DRAW Edited Resu lt - Final [facility] [place] [address] [facility] [place] [address], [facility] [place] [address] [place] [address] * HEPATITIS B SURFACE AG, EIA WITH REFLEX CONFIRM (01/03/2023 11:50 AM CDT) HEPATITIS B SURFACE ANTIGEN NON-REACTIVE NON-REACT SAROJ [facility] COMMENT [facility] CONFIRMATION CANCELED [facility] Comment:Result canceled by t jc ancillary. Blood Blood / Unknown 01/03/2023 1 1:50 AM CDT 01/04/2023 4:07 AM CDT Narrative [facility] [place] - 01/11/2023 9:48 PM [employer] For additional information, please refer to http://education.Fyusion/faq/KFK953 (This link is being provided for informational/ educational purposes only.) Joe Garcia MD LAB - BLOOD DRAW Edited Resu lt - Final [facility] [place] [address] [address] [facility] [place] [address], [facility] [place] [address] [address] [facility] [place] [address] from Last 3 Months or Most Recently Relevant to Health Maintenance Insurance [facility] Care Teams Import Clerk Relationship Specialty Start Date End Date Joe Garcia MD [address] [place] [address] PCP - General Infectious Diseases 03/16/23
--- OUTSIDE RECORDS SUMMARY | 2024-09-08 22:09 | XMS_ITS | Clinical Summary ---
Author Organization [facility] Address [address] [place] [address] Care Team Providers Care Progressive Assembler And Fitter Name Role Phone Joe Denton MD Primary Care Provider [phone] Source Comments [facility],non-owned Affiliates and Associated Physician Practices is amultiple site organization consisting of ambulatory clinics and hospital sitesin [place], [place], [place] and [place]. This disclosure is being madepursuant to the Care Everywhere program and may not contain all information available regarding this patient. Last updated 11/25/17.[facility] Allergies No known active allergies Medications * [...] on file Legal Sex Male 7:22 PM MANAGER FINANCIAL SERVICES Gender Identity Not on file Sexual Orientation Not on file Last Filed Vital Signs Vital Sign Reading Time Taken Comments Blood Pressure 126/82 04/28/2023 10:00 AM MANAGER FINANCIAL SERVICES Pulse 78 04/28/2023 10:00 AM MANAGER FINANCIAL SERVICES Temperature 36.3 C (97.3 F) 04/28/2023 9:46 AM MANAGER FINANCIAL SERVICES Respiratory Rate 11 04/28/2023 10:0 0 AM MANAGER FINANCIAL SERVICES Oxygen Saturation 99% 04/28/2023 10: 00 AM MANAGER FINANCIAL SERVICES Inhaled Oxygen Concentration - - Weight 84.2 kg (185 lb 11.2 oz) 04/28/2023 8:35 AM MANAGER FINANCIAL SERVICES Height 188 cm (6' 2) 04/28/2023 8:35 AM MANAGER FINANCIAL SERVICES Body Mass Index 23.84 04/28/2023 8:35 AM MANAGER FINANCIAL SERVICES Plan of Treatment Health Maintenance Due Date [...] ENDOSCOPY, COLON, SCREENING Routine 04/28/2023 9:01 AM MANAGER FINANCIAL SERVICES from Last 3 Months or Most Recently Relevant to Health Maintenance Results * ENDOSCOPY, COLON, SCREENING (04/28/2023 9:01 AM MANAGER FINANCIAL SERVICES) Report Endoscopy POC Endoscopy Department Report _ [...] and oxygen saturations were monitored continuously. The [id number] was introduced through the anus and advanced [...] entire procedure. Procedure Code(s): --- Professional --- 45899, Colonoscopy, flexible; with removal of tumor(s), polyp(s), or other lesion(s) by snare technique Diagnosis Code(s): --- Professional --- Z12.11, Encounter for screening for malignant neoplasm of colon D12.2, Benign neoplasm of ascending colon K64.8, Other hemorrhoids D12.8, Benign neoplasm of rectum K57.30, Diverticulosis of large intestine without perforation or abscess without bleeding CPT copyright 2021 [employer]. All rights reserved. The codes documented in this report are preliminary and upon compound machine operator review may be revised to meet current compliance requirements. _ Tono Yeung MD 04/28/2023 9:53:13 AM Note Initiated On: 04/28/2023 9:01 AM Number of Addenda: 0 [facility] [address] [place] [address] [facility] [employer] 04/28/2023 9:01 AM MANAGER FINANCIAL SERVICES us Tono Yeung MD GI PROCEDURE ORDERABLES Edite d Result - Final [facility] from Last 3 Months or Most Recently Relevant to Health Maintenance Insurance [facility] MEDICAID Care Teams Progressive Assembler And Fitter Relationship Specialty Start Date End Date Joe Denton MD [address] [facility] [place] [address] PCP - General Infectious Disease 12/22/23
--- OUTSIDE RECORDS SUMMARY | 2024-09-08 22:09 | XMS_ITS | Encounter Summary ---
Author Organization [facility] Address [address] [place] [address] Care Team Providers Care Fire Control System Installer Name Role Phone Joe Garcia MD Primary Care Provider [phone] Reason for Visit * Reason Comments Removable Prosthetics #10 broken off connie salas Encounter Details Date Type Department Care Team (Late st Contact Info) Description 06/25/2024 Office Visit TelePharm [address] [place] [phone] Trent Baer DMD [address] [place] [id number] Social History Tobacco Use Types Packs/Day Years Used Date Smoking Tobacco: Never Passive Smoke Exposure: Never Smokeless Tobacco: Never Alcohol Use Standard Drinks/Week Comments Yes 0 [...] Orientation [place] 01/03/2023 7: 41 AM PDT documented as of this encounter Plan of Treatment Upcoming Encounters Date Type Department Care Team (Late st Contact Info) Description 09/24/2024 10:30 AM CDT Office Visit [address] [phone] Joe Garcia MD [address] [place] [id number] documented as of this encounter Visit Diagnoses Not on filedocumented in this encounter Additional Health Concerns Assessment Noted Time PHQ-9 Depression Total Score: 0 01/04/20 23 10:29 AM PDT documented as of this encounter Care Teams Fire Control System Installer Relationship Specialty Start Date End Date Joe Garcia MD [address] [place] [id number] PCP - General Infectious Diseases 03/16/23 documented as of this encounter
== END 2024-09-08 21:57 | disposition left against medical advice (07) ==
LOC: ANHED 22:07
DX: L23.7 Allergic contact dermatitis due to plants, except food (principal)
CPT/HCPCS: 99199